=== PATIENT | female | born 1995 | race African-American/Black ===

== ENCOUNTER 2019-01-10 08:15 | Emergency (ER) | payer MEDICAID ==
[~2019-01-10] VITALS: Ht 170.2 cm; Wt 121.0 kg
[2019-01-10] MEDS ORDERED: CODEINE/BUTALBIT/ACETAMINOPHEN/CAFF 30/50/325/40MG CAPSULE PO ONE (09:00)
[2019-01-10 09:16] LABS: CLARITY URINE CLEAR (CLEAR); COLOR URINE YELLOW (YELLOW); KETONES URINE NEGATIVE (NEGATIVE); LEUKOCYTE ESTERASE URINE NEGATIVE (NEGATIVE); NITRITE URINE NEGATIVE (NEGATIVE); OCCULT BLOOD URINE NEGATIVE (NEGATIVE); PH URINE 6.5 (4.5-8.0); PROTEIN URINE NEGATIVE (NEGATIVE); SPECIFIC GRAVITY URINE 1.021 (1.005-1.030); UROBILINOGEN URINE 0.2 E.U./dL (0.2-1.0)
[2019-01-10 09:25] LABS: BASOPHILS % 0.4 % (0.0-2.0); EOSINOPHILS % 0.5 % (0.0-5.0); HEMATOCRIT. 37.3 % (36.0-48.0); HEMOGLOBIN. 11.4 g/dL (12.0-16.0); LYMPHOCYTES % 29.6 % (20.0-50.0); MEAN CORPUSCULAR HEMOGLOBIN 20.5 pg (28.0-32.0); MEAN PLATELET VOLUME 7.5 fl (7.4-10.4); MONOCYTES % 6.3 % (2.0-8.0); NEUTROPHILS % 63.2 % (40.0-76.0); PLATELET 390 x1000/uL (130-400); RED BLOOD CELL COUNT 5.57 mill/uL (4.2-5.4); RED CELL DISTRIBUTION WIDTH 17.1 % (11.6-14.6)
[2019-01-10 09:29] LABS: CHLORIDE 103 mEq/L (98-107)
[2019-01-10 09:56] LABS: PLATELET ESTIMATE NORMAL
[2019-01-10] MEDS ORDERED: ONDANSETRON HCL 4MG/2ML INJ IV ONE (10:00)
[2019-01-10] MEDS ORDERED: MORPHINE SULFATE 4 MG/ML CPJ (NOT FOR IM USE) IV ONE (10:00)
[2019-01-10 10:50] VITALS: BP 141/81
== END 2019-01-10 11:23 | disposition home or self-care (01) ==
LOC: ER 08:29
DX: R51 Headache (principal); R11.2 Nausea with vomiting, unspecified; H53.149 Visual discomfort, unspecified
CPT/HCPCS: 36415; 80053; 81003; 81025; 85025; 96374; 96375; 99283; J2270; J2405

== ENCOUNTER 2020-11-11 04:37 | Emergency (ER) | payer MEDICAID ==
[~2020-11-11] VITALS: Ht 172.7 cm; Wt 129.0 kg
[2020-11-11 05:57] LABS: BASOPHILS % 0.4 % (0.0-2.0); EOSINOPHILS % 1.2 % (0.0-5.0); HEMATOCRIT. 32.8 % (36.0-48.0); HEMOGLOBIN. 10.2 g/dL (12.0-16.0); LYMPHOCYTES % 43.1 % (20.0-50.0); MEAN CORPUSCULAR VOLUME 67.6 fL (81.0-99.0); MEAN PLATELET VOLUME 7.7 fl (7.4-10.4); MONOCYTES % 8.2 % (2.0-8.0); NEUTROPHILS % 47.1 % (40.0-76.0); PLATELET 337 x1000/uL (130-400); RED BLOOD CELL COUNT 4.85 mill/uL (4.2-5.4); RED CELL DISTRIBUTION WIDTH 15.3 % (11.6-14.6)
[2020-11-11 06:05] LABS: CHLORIDE 104 mEq/L (98-107)
[2020-11-11] MEDS ORDERED: KETOROLAC 30MG/ML VIAL IV STA (06:17)
[2020-11-11] MEDS ORDERED: SODIUM CHLORIDE 0.9% 1,000 ML IV ONE (06:30)
[2020-11-11 06:36] LABS: HCG SCREEN NEGATIVE
[2020-11-11] MEDS ORDERED: TRAMADOL 50MG TABLET PO ONE (09:45)
[2020-11-11] MEDS ORDERED: TRAM50TA3 MT (09:53)
[2020-11-11] MEDS ORDERED: IBUP-2029 MT (09:53)
[2020-11-11 10:33] VITALS: BP 136/83
== END 2020-11-11 10:59 | disposition home or self-care (01) ==
LOC: ER 04:37
DX: R07.89 Other chest pain (principal); D64.9 Anemia, unspecified; F17.200 Nicotine dependence, unspecified, uncomplicated; Z82.5 Family history of asthma and other chronic lower respiratory diseases
CPT/HCPCS: 36415; 71045; 80053; 84484; 84703; 85025; 85379; 93005; 93970; 96361; 96374; 99285; J1885; J7030; Z7610

== ENCOUNTER 2024-08-07 13:36 | Emergency (ER) | payer MEDICAID ==
[~2024-08-07] VITALS: Ht 172.7 cm; Wt 134.0 kg
[~2024-08-07 13:36] MED LIST: IBUP-2029 MT; TRAM50TA3 MT
[2024-08-07 13:59] VITALS: BP 143/83; PULSE 83; RESP 16; TEMP 98.3; O2SAT 99
== END 2024-08-07 14:00 ==
LOC: ER 13:36
DX: R05.9 Cough, unspecified (principal); Z53.21 Procedure and treatment not carried out due to patient leaving prior to being seen by health care provider

== ENCOUNTER 2025-07-23 08:30 | Emergency (ER) | payer MEDICAID ==
[~2025-07-23] VITALS: Ht 170.2 cm; Wt 104.0 kg
[~2025-07-23 08:30] MED LIST changes: +IBUP-1455 MT; -IBUP-2029 MT
[2025-07-23 08:35] VITALS: O2SAT 100
[2025-07-23] MEDS: LIDOCAINE 5% PATCH TOP SCH (09:42)
[2025-07-23] MEDS: ACETAMINOPHEN 500MG TABLET PO ONE (09:43)
[2025-07-23] MEDS: KETOROLAC 15MG/ML VIAL IM ONE (09:43)
[2025-07-23 10:48] LABS: HCG SCREEN NEGATIVE
[2025-07-23] MEDS ORDERED: CYCL10TA21 MT (11:00)
[2025-07-23] MEDS ORDERED: LIDO700A30 TP (11:00)
[2025-07-23 11:06] VITALS: BP 158/80; PULSE 88; RESP 16; TEMP 37.1; O2SAT 100
== END 2025-07-23 11:07 | disposition home or self-care (01) ==
LOC: ER 08:30
DX: M54.50 Low back pain, unspecified (principal); J45.909 Unspecified asthma, uncomplicated; Z98.890 Other specified postprocedural states; Z79.899 Other long term (current) drug therapy
CPT/HCPCS: 99283; 81025; 84703; 96372; J1885